=== PATIENT | male | born 1990 | race Caucasian/White ===

== ENCOUNTER 2020-06-24 12:53 | Emergency (ER) | payer MEDICARE, MEDICAID ==
[~2020-06-24] VITALS: Ht 175.3 cm; Wt 104.5 kg
[2020-06-24 13:02] VITALS: BP 120/70
--- NOTE | 2020-06-24 15:33 | NUR ---
R EAR IRRIGATED WITHOUT DIFFICULTY, PT TOLERATED WELL, EAR WAX REMOVED
== END 2020-06-24 16:29 | disposition home or self-care (01) ==
LOC: ER 12:53
DX: H61.23 Impacted cerumen, bilateral (principal); J45.909 Unspecified asthma, uncomplicated; E11.9 Type 2 diabetes mellitus without complications
CPT/HCPCS: 69209; 99282

== ENCOUNTER 2020-07-10 17:07 | Emergency (ER) | payer MEDICARE, MEDICAID ==
[~2020-07-10] VITALS: Ht 175.3 cm; Wt 106.5 kg
[2020-07-10 17:41] VITALS: BP 134/73
[2020-07-10] MEDS ORDERED: LIDOcaine 1% W/epiNEPHrine 1:100,000 20ml vial SQ ONE ×2 (19:10→19:15)
== END 2020-07-10 20:22 | disposition home or self-care (01) ==
LOC: ER 17:08
DX: S01.112A Laceration without foreign body of left eyelid and periocular area, initial encounter (principal); J45.909 Unspecified asthma, uncomplicated; E11.9 Type 2 diabetes mellitus without complications; Z87.891 Personal history of nicotine dependence; Y04.2XXA Assault by strike against or bumped into by another person, initial encounter; Y93.89 Activity, other specified; Y92.89 Other specified places as the place of occurrence of the external cause; Y99.8 Other external cause status
CPT/HCPCS: 12011; 12013; 99282

== ENCOUNTER 2020-07-16 11:38 | Emergency (ER) | payer MEDICARE, MEDICAID ==
[~2020-07-16] VITALS: Ht 175.3 cm; Wt 102.9 kg
[2020-07-16 11:48] VITALS: BP 105/69
== END 2020-07-16 13:02 | disposition home or self-care (01) ==
LOC: ER 11:38
DX: S01.112D Laceration without foreign body of left eyelid and periocular area, subsequent encounter (principal); Z48.02 Encounter for removal of sutures; X58.XXXD Exposure to other specified factors, subsequent encounter
CPT/HCPCS: 99281